=== PATIENT | male | born 1995 | race Caucasian/White ===

== ENCOUNTER 2019-12-05 13:48 | Emergency (ER) | payer OTHER ==
[~2019-12-05] VITALS: Ht 190.5 cm; Wt 98.9 kg
[2019-12-05 13:57] VITALS: Ht 190.5 cm; Wt 98.9 kg
[2019-12-05 16:07] LABS: BASOPHIL % 0.6 % (0-2); PLATELET COUNT 309 x10^3mcL (130-400); RED CELL DISTRIBUTION WIDTH 13.4 % (11.5-14.5)
[2019-12-05 16:13] LABS: CALCIUM 8.8 mg/dL (8.5-10.1); CARBON DIOXIDE 27.9 mmol/L (21-32); CHLORIDE SERUM 104 mmol/L (98-107); CREATININE SERUM 0.8 mg/dL (0.7-1.3); GFR1 > 60 mL/min; GLUCOSE SERUM 103 mg/dL (74-106); POTASSIUM SERUM 4.5 mmol/L (3.5-5.1); SODIUM SERUM 141 mmol/L (136-145)
[2019-12-05 19:12] VITALS: BP 128/80
== END 2019-12-05 19:13 | disposition short-term general hospital (02) ==
LOC: ED 13:48
PROVIDERS: Emergency Medicine
DX: J36 Peritonsillar abscess (principal)
CPT/HCPCS: J0295; J1100; J1885; J7030; Q9967